=== PATIENT | male | born 1985 | race Two or more races ===

== ENCOUNTER 2024-08-04 07:45 | Outpatient (CLI) | payer OTHER ==
[2024-08-04 08:56] LABS: PH,URINE 5.5 (5.0-8.0); URINE APPEARANCE Clear; URINE BILIRRUBIN Negative (NEGATIVE); URINE BLOOD Small; URINE COLOR Yellow; URINE GLUCOSE Negative (NEGATIVE); URINE KETONE Negative (NEGATIVE); URINE LEUKOCYTE Negative; URINE NITRATE Negative; URINE PROTEIN Negative (NEGATIVE); URINE UROBILINOGEN 0.2 E.U./dl
[2024-08-04 09:01] LABS: URINE BACTERIA 11.3 uL (0.0-1933); URINE EPITHELIAL CELLS 2.3 uL (0.0-38.8); URINE RBC 30.8 uL (0.0-20.8)
[2024-08-04 09:23] LABS: ALBUMIN 3.5 gm/dL (3.4-5.0); BILIRUBIN TOTAL 0.37 mg/dL (0.3-1.2); CALCIUM 8.6 mg/dL (8.5-10.1); CHOL HDL RATIO 3.7 (0-5.0); CREATININE SERUM 0.95 mg/dL (0.70-1.30); GFR 87.81; GLOBULINA 3.1 G/DL (2.4-3.5); POTASSIUM 4.49 mEq/L (3.5-5.1); PROSTATIC SPECIFIC ANTIGEN 0.613 NG/ML (0.010-4.00); TOTAL PROTEIN 6.6 gm/dL (6.4-8.2)
[2024-08-04 09:34] LABS: URINE WBC 1.5 uL (0.0-23.2)
== END 2024-08-04 08:07 | disposition home or self-care (01) ==
LOC: LAB 07:45
DX: N40.0 Benign prostatic hyperplasia without lower urinary tract symptoms (principal); E08.00 Diabetes mellitus due to underlying condition with hyperosmolarity without nonketotic hyperglycemic-hyperosmolar coma (NKHHC); E78.00 Pure hypercholesterolemia, unspecified

== ENCOUNTER 2025-01-07 09:24 | Emergency (ER) | payer OTHER ==
[~2025-01-07] VITALS: Ht 157.5 cm; Wt 63.5 kg
[2025-01-07] MEDS ORDERED: METHYLPREDNISOLONE SOD SUCC 125 MG VIAL ONE (09:57)
[2025-01-07] MEDS ORDERED: LEVALBUTEROL HCL 1.25 MG/3 ML SOLUTION IH ONE ×2 (09:59→10:00)
[2025-01-07] MEDS ORDERED: IPRATROPIUM BROMIDE 0.5 MG/2.5 ML AMPUL.NEB IH ONE ×2 (09:59→10:00)
[2025-01-07] MEDS ORDERED: METHYLPREDNISOLONE SOD SUCC 125 MG VIAL IV ONE (10:00)
[2025-01-07] MEDS ORDERED: SINGULAIR10 MG PO (10:22)
== END 2025-01-07 10:28 | disposition home or self-care (01) ==
LOC: ER 09:26
DX: J45.909 Unspecified asthma, uncomplicated (principal); R06.02 Shortness of breath